=== PATIENT | male | born 1995 | race Two or more races ===

== ENCOUNTER 2018-04-10 12:00 | Inpatient (IN) | payer OTHER ==
[~2018-04-10] VITALS: Ht 180.3 cm; Wt 96.2 kg
[2018-04-18] MEDS ORDERED: CLONAZEPAM1 MG PO (11:00)
[2018-04-18] MEDS ORDERED: DOCUSATE SODIU100 MG PO (11:00)
[2018-04-18] MEDS ORDERED: AMOX-CLAV 875-1 EACH PO (11:00)
[2018-04-18] MEDS ORDERED: GABAPENTIN800 MG PO (11:00)
[2018-04-18] MEDS ORDERED: OXYC1TAB9 PO (11:00)
[2018-04-18] MEDS ORDERED: MEDROLPACK PO (11:00)
== END 2018-04-18 13:11 | disposition home or self-care (01) | DRG 455 ==
LOC: SURH 04-17 04:41 → O/R 04-17 04:41 → SURH 04-17 10:15 → MEDI 04-17 14:31 → SURH 04-17 14:31
PROVIDERS: Orthopaedic Surgery Orthopaedic Surgery of the Spine
PROC: 0SG0071 Fusion of Lumbar Vertebral Joint with Autologous Tissue Substitute, Posterior Approach, Posterior Column, Open Approach (ICD-10-PCS; 2018-04-17)
PROC: 0ST20ZZ Resection of Lumbar Vertebral Disc, Open Approach (ICD-10-PCS; 2018-04-17)
PROC: 0SG00AJ Fusion of Lumbar Vertebral Joint with Interbody Fusion Device, Posterior Approach, Anterior Column, Open Approach (ICD-10-PCS; 2018-04-17)
PROC: 07DS3ZZ Extraction of Vertebral Bone Marrow, Percutaneous Approach (ICD-10-PCS; 2018-04-17)
PROC: 4A12X4Z Monitoring of Cardiac Electrical Activity, External Approach (ICD-10-PCS; 2018-04-17)
PROC: 0SG00A0 Fusion of Lumbar Vertebral Joint with Interbody Fusion Device, Anterior Approach, Anterior Column, Open Approach (ICD-10-PCS; principal; 2018-04-17 10:15)
DX: M48.061 Spinal stenosis, lumbar region without neurogenic claudication (principal); M47.26 Other spondylosis with radiculopathy, lumbar region; M51.16 Intervertebral disc disorders with radiculopathy, lumbar region

== ENCOUNTER 2022-10-22 20:29 | Emergency (ER) | payer OTHER ==
[~2022-10-22] VITALS: Ht 180.3 cm; Wt 99.3 kg
[~2022-10-22 20:29] MED LIST: AMOX-CLAV 875-1 EACH PO; CLONAZEPAM1 MG PO; DOCUSATE SODIU100 MG PO; GABAPENTIN800 MG PO; MEDROLPACK PO; OXYC1TAB9 PO
== END 2022-10-23 03:50 | disposition home or self-care (01) ==
LOC: ER 20:29
DX: S20.229A Contusion of unspecified back wall of thorax, initial encounter (principal); V49.9XXA Car occupant (driver) (passenger) injured in unspecified traffic accident, initial encounter; Y93.9 Activity, unspecified; Y92.413 State road as the place of occurrence of the external cause; Y99.9 Unspecified external cause status; M62.830 Muscle spasm of back